=== PATIENT | male | born 1970 | race Caucasian/White ===

== ENCOUNTER 2016-12-10 22:04 | Emergency (ER) | payer SELFPAY ==
[~2016-12-10] VITALS: Ht 177.8 cm; Wt 107.5 kg
[~2016-12-10 22:04] MED LIST: NO MEDS
[2016-12-10 22:08] VITALS: Ht 177.8 cm; Wt 107.5 kg
== END 2016-12-10 22:35 | disposition left against medical advice (07) ==
LOC: E/R 22:04
DX: Z53.21 Procedure and treatment not carried out due to patient leaving prior to being seen by health care provider (principal)